=== PATIENT | male | born 1960 | race Caucasian/White ===

== ENCOUNTER → 2017-09-24 | Outpatient (CLI) | payer OTHER ==
[~2017-09-24] MED LIST: REGADENOSON 0.4 MG/5 ML SYRINGE IV ONE
--- NOTE | 2017-09-24 12:48 | NM ---
EXAMINATION TYPE: NM stress lexiscan cardiolite DATE OF EXAM: 09/24/2017 COMPARISON: NONE HISTORY: Hypertension, I10 TECHNIQUE: After the intravenous administration of 10.3 mCi Tc 99m Sestamibi - Cardiolite resting SP ECT images acquired 45 minutes post injection. The patient received 0.4mg Lexiscan, 26.8 mCi Tc 99m Sestamibi - Stress images obtained [address] injection FINDINGS: Review of stress and rest SPECT images demonstrates some gut activity along the inferior wall of the left ventricle, no areas of pharmacologically induced ischemia evident, gated analysis shows question able paradoxical inferior wall motion with an estimated left ventricular ejection fraction of 54 %. IMPRESSION: No scintigraphic evidence for reversible ischemia.
--- NOTE | 2017-09-26 09:56 | EST ---
EXERCISE STRESS DATE OF SERVICE: September 24, 2017. AGE: 57 SEX: Male HT: 71" WT: 140 PROTOCOL: Lexiscan STAGE: DURATION OF EXERCISE: HEART RATE REST: 65 BLOOD PRESSURE REST: 163/80 MAXIMUM HEART RATE ACHIEVED: 103 MAXIMUM BLOOD PRESSURE: 214/71 85% MPHR: 100% MPHR: METS: INDICATION: Chest pain. STRESS DATA: Pretesting physical examination showed a heart rate of 65, pressure is 163/80 mmHg. EKG showed sinus mechanism. 0.4 mg of Lexiscan was given over 15 seconds per protocol. The max heart rate was 103 beats per minute and maximum pressure was 214/71 mmHg. Clinically the patient did not have any symptoms of chest pain or discomfort and the EKG did not show any significant ST or T-wave abnormalities concerning for ischemia. CONCLUSION: 1. Nondiagnostic electrocardiogram stress testing in response to Lexiscan. 2. Please follow up on the Cardiolite portion on separate report. MMODL / IJN: [id number] /
== END | disposition home or self-care (01) ==
LOC: RADNMMAIN 08:14
PROVIDERS: ATTEND Family Medicine
DX: I10 Essential (primary) hypertension (principal)
CPT/HCPCS: 93017; 78452; A9500; J2785

== ENCOUNTER 2017-10-23 11:29 | Day surgery (SDC) | payer OTHER ==
[~2017-10-23 11:29] MED LIST changes: +LACTATED RINGERS 1,000 ML IV SCH; +LIDOCAINE 1% 20 ML VIAL (10MG/ML) FOR IV START INTRADERMA PRN; -REGADENOSON 0.4 MG/5 ML SYRINGE IV ONE
[2017-10-23 12:15] VITALS: TEMP 97.9
[2017-10-23] MEDS ORDERED: LACTATED RINGERS 1,000 ML IV ONE ×2 (12:26)
--- NOTE | 2017-10-23 14:26 | P.GSHP ---
History of Present Illness H&P Date: 10/23/17 Chief Complaint: GERD, diarrhea This a 57-year-old male referred from [facility]. Patient presents today for EGD colonoscopy. He's had issues with GERD and diarrhea. Past Medical History Past Medical History: COPD, Hypertension Additional Past Medical History / Comment(s): anemia, bowel obstruction, History of Any Multi-Drug Resistant Organisms: None Reported Additional Past Surgical History / Comment(s): colonscopy Past Anesthesia/Blood Transfusion Reactions: No Reported Reaction Smoking Status: Former smoker - Past Family History Mother Family Medical History: Cancer Medications and Allergies Home Medications Medication Instructions Recorded Confirmed Type Albuterol Nebulizer 1 applicate IH BID 10/17/17 10/23/17 History Ferrous Sulfate [Feosol] 325 mg PO Q48H 10/17/17 10/23/17 History Ipratropium Nebulizer 1 applicate IH BID 10/17/17 10/23/17 History Ipratropium/Albuterol Sulfate 1 puff INHALATION QID PRN 10/17/17 10/23/17 History [Combivent Respimat Inhaler] Metoprolol Tartrate [Lopressor] 50 mg PO BID 10/17/17 10/23/17 History Potassium 99 mg PO DAILY 10/17/17 10/23/17 History Tiotropium 18 Mcg/Puff [Spiriva] 1 cap INHALATION W/LUNCH 10/17/17 10/23/17 History Allergies Allergy/AdvReac Type Severity Reaction Status Date / Time No Known Allergies Allergy Unverified 10/23/17 12:09 Surgical - Exam Vital Signs Temp Pulse Resp BP Pulse Ox 97.9 F 70 16 163/84 97 10/23/17 12:14 10/23/17 12:14 10/23/17 12:14 10/23/17 12:14 10/23/17 12:14 - General well developed, well nourished, no distress - Eyes PERRL - ENT normal pinna - Neck no masses - Respiratory normal expansion - Cardiovascular Rhythm: regular - Abdomen Abdomen: soft, non tender Assessment and Plan Assessment: GERD, diarrhea. We'll perform EGD and colonoscopy.
[2017-10-23] MEDS ORDERED: PROPOFOL 10 MG/ML 20 ML VIAL IV ONE (14:28)
--- NOTE | 2017-10-23 14:44 | P.OP ---
Date of Procedure: 10/23/17 Preoperative Diagnosis: GERD Diarrhea Postoperative Diagnosis: Antral gastritis Small hiatal hernia Mild esophagitis Procedure(s) Performed: EGD Colonoscopy Anesthesia: MAC Surgeon: Shyam Schaffer Pathology: other (Antrum, esophagus) Condition: stable Disposition: PACU Description of Procedure: The patient's placed on the endoscopy table in the lateral position. He received IV sedation. The gastroscope placed oropharynx passed in the esophagus and stomach. Scope was then placed through the pylorus. The first and second portion of the duodenum appeared normal. Scope was then brought back the antrum this is mildly inflamed. A biopsies performed. Scope was then retroflexed and there was a small hiatal hernia. The GE junction was at 38 cm. The distal esophagus appeared mildly inflamed a biopsies performed. The proximal esophagus appeared normal. Scope was withdrawn for patient. Next digital rectal exam was performed there appeared to be no abnormalities. Flexible colonoscope was then placed patient anus and passed throughout the colon. The scope could not be passed beyond the transverse colon secondary to tortuous valve. The colon was very difficult to distend. This point scope was withdrawn. There is no significant abnormality seen. The patient was scheduled for a barium enema.
[2017-10-23 14:55] VITALS: RESP 18
[2017-10-23 15:37] VITALS: PULSE 60
[2017-10-23 16:01] VITALS: BP 159/90
== END 2017-10-23 15:50 | disposition home or self-care (01) ==
LOC: ORWHC2ENDO 11:29
PROVIDERS: ATTEND Surgery
DX: K29.50 Unspecified chronic gastritis without bleeding (principal); K44.9 Diaphragmatic hernia without obstruction or gangrene; K21.0 Gastro-esophageal reflux disease with esophagitis; Q43.8 Other specified congenital malformations of intestine; R19.7 Diarrhea, unspecified; J44.9 Chronic obstructive pulmonary disease, unspecified; I10 Essential (primary) hypertension; D64.9 Anemia, unspecified; Z79.899 Other long term (current) drug therapy; Z87.891 Personal history of nicotine dependence
CPT/HCPCS: 88305; 45378; 43239; J2704

== ENCOUNTER 2018-03-06 19:27 | Inpatient (IN) | payer OTHER ==
--- NOTE | 2018-03-06 20:06 | ED ---
Fall HPI - General Chief Complaint: Fall Stated Complaint: fall, lt hip pain Time Seen by Provider: 03/06/18 19:35 Source: patient Mode of arrival: wheelchair - History of Present Illness Initial Comments: This is a 57-year-old male the ER for evaluation. Patient resents today for evaluation Of fall. Patient had a trip and fall wall bowling tonight. Landing on left hip positive left hip fracture. No other injuries noted. Patient does admit to alcohol intoxication MD Complaint: fall -: minutes(s) Fall From: standing (Wall bowling) When Fall Occurred: 1 hour [employer] Fall Witnessed: no Place Fall Occurred: other (Pelvic place) Loss of Consciousness: none Prolonged Down Time?: no Symptoms Prior to Fall: none Location - Extremities: Left: Thigh Severity: severe Severity scale (1-10): 4 Quality: stabbing Context: tripped/slipped, alcohol use Associated Symptoms: denies - Related Data Home Medications Medication Instructions Recorded Confirmed Ferrous Sulfate [Feosol] 325 mg PO DAILY 10/17/17 03/06/18 Ipratropium/Albuterol Sulfate 1 puff INHALATION RT-QID PRN 10/17/17 03/06/18 [Combivent Respimat Inhaler] Metoprolol Tartrate [Lopressor] 50 mg PO BID 10/17/17 03/06/18 Potassium 99 mg PO DAILY 10/17/17 03/06/18 Tiotropium 18 Mcg/Puff [Spiriva] 1 cap INHALATION RT-DAILY 10/17/17 03/06/18 Albuterol Nebulized [Ventolin 2.5 mg INHALATION RT-TID 03/06/18 03/06/18 Nebulized] Ipratropium Nebulized [Atrovent 0.5 mg INHALATION RT-TID 03/06/18 03/06/18 Nebulized 0.2 MG/ML] Lisinopril [Zestril] 20 mg PO DAILY 03/06/18 03/06/18 Allergies Allergy/AdvReac Type Severity Reaction Status Date / Time prednisone AdvReac Hallucinati Verified 03/07/18 16:17 ons Review of Systems ROS Statement: Those systems with pertinent positive or pertinent negative responses have been documented in the HPI. ROS Other: All systems not noted in ROS Statement are negative. Past Medical History Past Medical History: COPD, Hypertension Additional Past Medical History / Comment(s): bowel obstruction History of Any Multi-Drug Resistant Organisms: None Reported Past Surgical History: No Surgical Hx Reported Past Psychological History: No Psychological Hx Reported Smoking Status: Former smoker Past Alcohol Use History: Occasional Past Drug Use History: None Reported - Past Family History Father Family Medical History: CVA/TIA Mother Family Medical History: Myocardial Infarction (VT) General Exam Limitations: physical limitation General appearance: alert, in no apparent distress Head exam: Present: atraumatic, normocephalic, normal inspection Eye exam: Present: normal appearance, PERRL, EOMI. Absent: scleral icterus, conjunctival injection, periorbital swelling ENT exam: Present: normal exam, mucous membranes moist Neck exam: Present: normal inspection. Absent: tenderness, meningismus, lymphadenopathy Respiratory exam: Present: normal lung sounds bilaterally. Absent: respiratory distress, wheezes, rales, rhonchi, stridor Cardiovascular Exam: Present: regular rate, normal rhythm, normal heart sounds. Absent: systolic murmur, diastolic murmur, rubs, gallop, clicks GI/Abdominal exam: Present: soft, normal bowel sounds. Absent: distended, tenderness, guarding, rebound, rigid Extremities exam: Present: normal inspection, full ROM, normal capillary refill , other (Severe left hip tenderness). Absent: tenderness, pedal edema, joint swelling, calf tenderness Back exam: Present: normal inspection Neurological exam: Present: alert, oriented X3, CN II-XII intact Psychiatric exam: Present: normal affect, normal mood Skin exam: Present: warm, dry, intact, normal color. Absent: rash Course Vital Signs 03/06/18 03/06/18 03/06/18 19:31 20:55 21:03 Temperature 97.9 F Pulse Rate 55 L 60 60 Respiratory 21 Rate Blood Pressure 92/56 O2 Sat by Pulse 95 Oximetry 03/06/18 21:53 Temperature Pulse Rate 71 Respiratory 20 Rate Blood Pressure 127/60 O2 Sat by Pulse 100 Oximetry Medical Decision Making - Medical Decision Making 57 male the ER for evaluation left hip pain positive left hip fracture. Patient will be admitted for orthopedic evaluation and treatment - Lab Data Result diagrams: 03/08/18 07:17 03/06/18 21:24 Lab Results 03/06/18 03/06/18 03/06/18 Range/Units 21:24 21:24 21:24 WBC 11.1 H (3.8-10.6) k/uL RBC 3.81 L (4.30-5.90) m/uL Hgb 11.8 L (13.0-17.5) gm/dL Hct 36.4 L (39.0-53.0) % MCV 95.4 (80.0-100.0) fL MCH 31.0 (25.0-35.0) pg MCHC 32.4 (31.0-37.0) g/dL RDW 13.8 (11.5-15.5) % Plt Count 403 (150-450) k/uL Neutrophils % 75 % Lymphocytes % 16 % Monocytes % 5 % Eosinophils % 2 % Basophils % 0 % Neutrophils # 8.3 H (1.3-7.7) k/uL Lymphocytes # 1.7 (1.0-4.8) k/uL Monocytes # 0.6 (0-1.0) k/uL Eosinophils # 0.2 (0-0.7) k/uL Basophils # 0.0 (0-0.2) k/uL PT (9.0-12.0) sec INR (<1.2) APTT (22.0-30.0) sec Sodium 126 L (137-145) mmol/L Potassium 4.5 (3.5-5.1) mmol/L Chloride 96 L (98-107) mmol/L Carbon Dioxide 18 L (22-30) mmol/L Anion Gap 12 mmol/L BUN 15 (9-20) mg/dL Creatinine 0.83 (0.66-1.25) mg/dL Est GFR (CKD-EPI)AfAm >90 (>60 ml/min/1.73 sqM) Est GFR (CKD-EPI)NonAf >90 (>60 ml/min/1.73 sqM) Glucose 87 (74-99) mg/dL Calcium 9.1 (8.4-10.2) mg/dL Phosphorus 3.1 (2.5-4.5) mg/dL Magnesium 2.0 (1.6-2.3) mg/dL Total Bilirubin 0.8 (0.2-1.3) mg/dL AST 28 (17-59) U/L ALT 30 (21-72) U/L Alkaline Phosphatase 68 (38-126) U/L Total Creatine Kinase 121 (55-170) U/L CK-MB (CK-2) 1.4 (0.0-2.4) ng/mL CK-MB (CK-2) Rel Index 1.2 Troponin I <0.012 (0.000-0.034) ng/mL Total Protein 6.8 (6.3-8.2) g/dL Albumin 4.3 (3.5-5.0) g/dL Serum Alcohol 143 mg/dL 03/06/18 Range/Units 21:24 WBC (3.8-10.6) k/uL RBC (4.30-5.90) m/uL Hgb (13.0-17.5) gm/dL Hct (39.0-53.0) % MCV (80.0-100.0) fL MCH (25.0-35.0) pg MCHC (31.0-37.0) g/dL RDW (11.5-15.5) % Plt Count (150-450) k/uL Neutrophils % % Lymphocytes % % Monocytes % % Eosinophils % % Basophils % % Neutrophils # (1.3-7.7) k/uL Lymphocytes # (1.0-4.8) k/uL Monocytes # (0-1.0) k/uL Eosinophils # (0-0.7) k/uL Basophils # (0-0.2) k/uL PT 9.5 (9.0-12.0) sec INR 0.9 (<1.2) APTT 22.2 (22.0-30.0) sec Sodium (137-145) mmol/L Potassium (3.5-5.1) mmol/L Chloride (98-107) mmol/L Carbon Dioxide (22-30) mmol/L Anion Gap mmol/L BUN (9-20) mg/dL Creatinine (0.66-1.25) mg/dL Est GFR (CKD-EPI)AfAm (>60 ml/min/1.73 sqM) Est GFR (CKD-EPI)NonAf (>60 ml/min/1.73 sqM) Glucose (74-99) mg/dL Calcium (8.4-10.2) mg/dL Phosphorus (2.5-4.5) mg/dL Magnesium (1.6-2.3) mg/dL Total Bilirubin (0.2-1.3) mg/dL AST (17-59) U/L ALT (21-72) U/L Alkaline Phosphatase (38-126) U/L Total Creatine Kinase (55-170) U/L CK-MB (CK-2) (0.0-2.4) ng/mL CK-MB (CK-2) Rel Index Troponin I (0.000-0.034) ng/mL Total Protein (6.3-8.2) g/dL Albumin (3.5-5.0) g/dL Serum Alcohol mg/dL - EKG Data -: EKG Interpreted by Me (EKG shows sinus rhythm rate of 74, VA 142, QRS 84, QTc 435) - Radiology Data Radiology results: report reviewed (X-ray chest CT brain C-spine negative, x- ray hip is positive for left hip fracture), image reviewed Disposition Clinical Impression: Fall, Closed left hip fracture Disposition: ADMITTED IP TO THIS [facility] Condition: Good Is patient prescribed a controlled substance at d/c from ED?: No
--- NOTE | 2018-03-06 20:25 | XR ---
EXAMINATION TYPE: XR Hip LT and AP Pelvis DATE OF EXAM: 03/06/2018 COMPARISON: NONE HISTORY: Hip pain after falling TECHNIQUE: A single AP view of the pelvis is obtained. Two views of the left hip are obtained. FINDINGS: There is an acute intertrochanteric fracture left femur. There is no dislocation. Pelvic ri ng is intact. Sacroiliac joints appear normal. IMPRESSION: Acute intertrochanteric fracture left femur.
--- NOTE | 2018-03-06 20:26 | XR ---
EXAMINATION TYPE: XR chest 1V DATE OF EXAM: 03/06/2018 COMPARISON: 12/04/2013 HISTORY: Chest pain TECHNIQUE: Single frontal view of the chest is obtained. FINDINGS: There is no heart failure nor confluent pneumonic infiltrate. Costophrenic angles are irina r. Bony thorax is intact. Pulmonary vascularity is normal. IMPRESSION: Normal chest. No change.
[2018-03-06] MEDS ORDERED: IPRATROPIUM-ALBUTEROL 3 ML NEB INHALATION STA (20:41)
[2018-03-06] MEDS ORDERED: SODIUM CHLORIDE 0.9% 500 ML 500 ML IV STA (21:15)
[2018-03-06] MEDS ORDERED: ONDANSETRON 4 MG/2 ML VIAL IVP STA (21:15)
[2018-03-06] MEDS ORDERED: SODIUM CHLORIDE 0.9% 1,000 ML IV STA ×2 (21:15)
[2018-03-06] MEDS ORDERED: MORPHINE SULFATE 4 MG/ML SYRINGE IV STA (21:15)
[2018-03-06 21:45] LABS: Basophils % (A) 0 %; Eosinophils # (A) 0.2 k/uL (0-0.7); Eosinophils % (A) 2 %; HCT 36.4 % (39.0-53.0); HGB 11.8 gm/dL (13.0-17.5); Lymphocytes # (A) 1.7 k/uL (1.0-4.8); Lymphocytes % (A) 16 %; MCHC 32.4 g/dL (31.0-37.0); MCV 95.4 fL (80.0-100.0); Mean Platelet Volume 5.6; Monocytes # (A) 0.6 k/uL (0-1.0); Monocytes % (A) 5 %; Neutrophils # (A) 8.3 k/uL (1.3-7.7); Neutrophils % (A) 75 %; Platelet Count 403 k/uL (150-450); RBC 3.81 m/uL (4.30-5.90); RDW 13.8 % (11.5-15.5); WBC 11.1 k/uL (3.8-10.6)
[2018-03-06 21:55] LABS: ALT 30 U/L (21-72); AST 28 U/L (17-59); Albumin 4.3 g/dL (3.5-5.0); Alkaline Phosphatase 68 U/L (38-126); Anion Gap 12 mmol/L; Blood Urea Nitrogen 15 mg/dL (9-20); Calcium 9.1 mg/dL (8.4-10.2); Carbon Dioxide 18 mmol/L (22-30); Chloride 96 mmol/L (98-107); Glucose 87 mg/dL (74-99); Phosphorus 3.1 mg/dL (2.5-4.5); Potassium 4.5 mmol/L (3.5-5.1); Sodium 126 mmol/L (137-145); Total Bilirubin 0.8 mg/dL (0.2-1.3); Total Protein 6.8 g/dL (6.3-8.2)
[2018-03-06 22:00] LABS: INR 0.9 (<1.2); Partial Thromboplastin Time 22.2 sec (22.0-30.0); Prothrombin Time 9.5 sec (9.0-12.0)
[2018-03-06 22:09] LABS: Alcohol 143 mg/dL
[2018-03-06 22:17] LABS: Creatine Kinase 121 U/L (55-170)
[2018-03-06] MEDS ORDERED: MORPHINE SULFATE 4 MG/ML SYRINGE IVP PRN (22:23)
[2018-03-06 22:30] LABS: Creatine Kinase MB 1.4 ng/mL (0.0-2.4); Troponin I <0.012 ng/mL (0.000-0.034)
[2018-03-06] MEDS ORDERED: ONDANSETRON 4 MG/2 ML VIAL IVP PRN (22:37)
--- NOTE | 2018-03-06 23:00 | CT ---
EXAMINATION TYPE: CT hip LT wo con DATE OF EXAM: 03/06/2018 COMPARISON: None HISTORY: Fell on LT hip CT DLP: 367.8 mGycm Automated exposure control for dose reduction was used. FINDINGS: Multiple axial sections were obtained from the mid sacroiliac joint to the proximal shaft of the femu r without contrast. There is an acute impacted subcapital fracture of the left femur. There is displacement of the fragme nts 1.4 cm. There is no dislocation. The acetabulum is intact. IMPRESSION: ACUTE SUBCAPITAL FRACTURE LEFT FEMUR WITH IMPACTION.
[2018-03-06] MEDS ORDERED: NON-FORMULARY DRUG (Ipratropium/Albuterol Sulfate [Combivent Respimat Inhaler] 1 PUFF) INHALATION PRN (23:52)
[2018-03-07 03:19] LABS: Appearance,Urine Clear (Clear); Bilirubin,Urine Negative (Negative); Blood,Urine Negative (Negative); Color,Urine Light Yellow; Glucose,Urine (UA) Negative (Negative); Ketones,Urine Trace (Negative); Leukocyte Esterase,Urine Negative (Negative); Nitrite,Urine Negative (Negative); PH, Urine 5.5 (5.0-8.0); Protein,Urine Negative (Negative); Specific Gravity,Urine 1.009 (1.001-1.035); Urobilinogen,Urine <2.0 mg/dL (<2.0)
[2018-03-07] MEDS: HYDROmorphone 0.5 MG/0.5 ML SYRINGE IVP PRN ×5 (03:33→13:58)
[2018-03-07] MEDS: IPRATROPIUM-ALBUTEROL 3 ML NEB INHALATION SCH ×3 (06:02→19:31)
[2018-03-07] MEDS: LISINOPRIL 20 MG TAB PO SCH (07:07)
[2018-03-07] MEDS: METOPROLOL TARTRATE 25 MG TAB PO SCH ×2 (07:07→20:42)
[2018-03-07] MEDS: FERROUS SULFATE 325 MG TAB PO SCH (07:08)
[2018-03-07] MEDS: ENOXAPARIN 40 MG/0.4 ML SYRINGE SQ SCH (07:37)
--- NOTE | 2018-03-07 07:42 | P.HPOR ---
History of Present Illness H&P Date: 03/07/18 Chief Complaint: Left hip pain The patient's a 57-year-old community ambulator presents after falling while bowling yesterday. He injured his left hip. He was unable to bear weight after the injury. He denied loss of consciousness. Normally ambulates without any assistive devices. Review of Systems Musculoskeletal: left: hip pain Past Medical History Past Medical History: COPD, Hypertension Additional Past Medical History / Comment(s): bowel obstruction History of Any Multi-Drug Resistant Organisms: None Reported Past Surgical History: No Surgical Hx Reported Past Anesthesia/Blood Transfusion Reactions: No Reported Reaction Past Psychological History: No Psychological Hx Reported Smoking Status: Former smoker Past Alcohol Use History: Daily (6 beers Per day), Occasional Past Drug Use History: None Reported - Past Family History Father Family Medical History: CVA/TIA Mother Family Medical History: Myocardial Infarction (ID) Medications and Allergies Home Medications Medication Instructions Recorded Confirmed Type Ferrous Sulfate [Feosol] 325 mg PO DAILY 10/17/17 03/06/18 History Ipratropium/Albuterol Sulfate 1 puff INHALATION RT-QID PRN 10/17/17 03/06/18 History [Combivent Respimat Inhaler] Metoprolol Tartrate [Lopressor] 50 mg PO BID 10/17/17 03/06/18 History Potassium 99 mg PO DAILY 10/17/17 03/06/18 History Tiotropium 18 Mcg/Puff [Spiriva] 1 cap INHALATION RT-DAILY 10/17/17 03/06/18 History Albuterol Nebulized [Ventolin 2.5 mg INHALATION RT-TID 03/06/18 03/06/18 History Nebulized] Ipratropium Nebulized [Atrovent 0.5 mg INHALATION RT-TID 03/06/18 03/06/18 History Nebulized 0.2 MG/ML] Lisinopril [Zestril] 20 mg PO DAILY 03/06/18 03/06/18 History Allergies Allergy/AdvReac Type Severity Reaction Status Date / Time prednisone AdvReac Hallucinati Verified 03/06/18 20:08 ons Physical Examination - Fracture left hip Location of fracture: Left hip, shortening and external rotation left lower extremity Appearance: swelling (Anterior) Distal extremity neurovascularly intact: Yes Distal joint involvement: No (Nontender left ankle/knee) Results - Labs Labs: Abnormal Lab Results - Last 24 Hours (Table) 03/06/18 03/06/18 03/07/18 Range/Units 21:24 21:24 03:10 WBC 11.1 H (3.8-10.6) k/uL RBC 3.81 L (4.30-5.90) m/uL Hgb 11.8 L (13.0-17.5) gm/dL Hct 36.4 L (39.0-53.0) % Neutrophils # 8.3 H (1.3-7.7) k/uL Sodium 126 L (137-145) mmol/L Chloride 96 L (98-107) mmol/L Carbon Dioxide 18 L (22-30) mmol/L Urine Ketones Trace H (Negative) H & H 03/06/18 Range/Units 21:24 Hgb 11.8 L (13.0-17.5) gm/dL Hct 36.4 L (39.0-53.0) % Coagulation 03/06/18 Range/Units 21:24 INR 0.9 (<1.2) Result Diagrams: 03/06/18 21:24 03/06/18 21:24 - Diagnostic results Hip x-ray: image reviewed Hip CT: image reviewed (Displaced left subcapital femoral neck fracture) Assessment and Plan Assessment: Displaced left subcapital femoral neck fracture COPD Heavy alcohol use (1) Closed left hip fracture Current Visit: Yes Status: Acute Priority: Medium Code(s): S72.002A - FRACTURE OF UNSP PART OF NECK OF LEFT FEMUR, INIT SNOMED Code(s): 845960948 Plan: I talked to the patient and his regarding his condition along with treatment options. We will plan to proceed with left total hip arthroplasty tomorrow morning. We will await preoperative medical evaluation/clearance. I anticipate starting DVT prophylaxis postoperatively.
[2018-03-07] MEDS ORDERED: ALBUTEROL NEBULIZED 2.5 MG/3 ML INHALATION SCH (08:00)
[2018-03-07] MEDS ORDERED: NON-FORMULARY DRUG (Tiotropium 18 Mcg/Puff 1 CAP) INHALATION SCH (08:00)
[2018-03-07] MEDS ORDERED: IPRATROPIUM 0.5 MG/2.5 ML NEBU INHALATION SCH (08:00)
[2018-03-07] MEDS ORDERED: NON-FORMULARY DRUG (Potassium [Potassium] 99 MG) PO SCH (09:00)
[2018-03-07] MEDS ORDERED: IV FLUID CONTINUATION 1,000 ML IV ONE (16:10)
[2018-03-07] MEDS ORDERED: fentaNYL (PF) 50 MCG/ML 2 ML AMP IVP ONE (16:40)
[2018-03-07] MEDS ORDERED: PROPOFOL 10 MG/ML 20 ML VIAL IV ONE (17:31)
[2018-03-07] MEDS ORDERED: MIDAZOLAM 2 MG/2 ML VIAL ONE (17:31)
[2018-03-07] MEDS ORDERED: KETAMINE 10 MG/ML 20 ML VIAL ONE (17:31)
[2018-03-07] MEDS ORDERED: PHENYLEPHRINE-0.9% NACL SYG 1 MG/10 ML SYRINGE ONE (17:31)
[2018-03-07] MEDS ORDERED: fentaNYL (PF) 50 MCG/ML 2 ML AMP ONE (17:31)
[2018-03-07] MEDS ORDERED: LACTATED RINGERS 1,000 ML IV ONE (17:43)
[2018-03-07] MEDS ORDERED: SODIUM CHLORIDE 0.9% 1,000 ML IV ONE ×2 (17:43→18:42)
[2018-03-07] MEDS ORDERED: ceFAZolin 3,000 MG in SODIUM CHLORIDE 0.9% IRRIGATIO 3,000 ML IRRIGATION ONE (18:07)
[2018-03-07] MEDS ORDERED: NALOXONE 0.4 MG/ML 1 ML VIAL IV PRN (19:12)
[2018-03-07] MEDS ORDERED: HYDROmorphone 2 MG/ML 1 ML SYRINGE IVP PRN (19:12)
--- NOTE | 2018-03-07 19:33 | P.OP ---
Date of Procedure: 03/07/18 Preoperative Diagnosis: Displaced left subcapital femoral neck fracture Postoperative Diagnosis: Same Procedure(s) Performed: Left total hip arthroplastylateral approach Implants: Depuy Corail size 15 standard collared femoral stem, 36 mm +5 cobalt chrome femoral head, 52 mm [place] acetabular shell with neutral polyethylene liner. Anesthesia: spinal Surgeon: Juan Daniel Paredes Estimated Blood Loss (ml): 75 Pathology: other (Femoral head) Condition: stable Disposition: PACU Indications for Procedure: The patient's a 57-year-old male who presents after falling yesterday injuring his left hip. Upon evaluation he was noted have a displaced left subcapital femoral neck fracture. A discussion of the risks and benefits of operative intervention was made with patient. Operative options to include open reduction and fixation versus total hip arthroplasty versus hemiarthroplasty were discussed. He opted to proceed with total hip arthroplasty. Specific risks of this procedure to include infection, neurovascular injury, development of blood clots, possible component loosening, possible dislocation, possible ligament discrepancy and need for subsequent procedures was discussed. Informed consent was obtained. Operative Findings: As below Description of Procedure: The patient was brought to the operating room, and after induction of spinal anesthesia was placed in a lateral decubitus position. The bony prominences were appropriately padded. The pelvis was stable perpendicular to the floor with a pegboard. The left lower extremity was prepped and draped in normal fashion. A 12 cm incision was then made centered over the greater trochanter extending superiorly to level the ASIS and distally in line with the femoral shaft. The skin and subcutaneous tissues were divided sharply. Electrocautery was used for hemostasis. The fascia clare and gluteus jhoan fascia was split in line with the skin incision. The muscle fibers were bluntly dissected proximally. A self-retaining retractor was placed. The anterior and posterior margins of the gluteus medius muscles identified and the anterior two thirds was detached from the greater trochanter with electrocautery. The gluteus minimus tendon was identified and detached in a similar fashion. A wide capsulotomy was performed. The femoral neck fracture was identified in the lower neck cut was made approximately 1 1/2 cm above the level of the lesser trochanter with a sagittal saw at a 45 the shaft. The head was then extracted with a corkscrew. Attention was then paid towards preparing the acetabular. Anterior and posterior retractors were placed. The remaining capsular labral tissues debrided sharply clearly defining the acetabular margins. Began reaming with a 49 mm reamer taking care to initially medialize, then reaming at 45 of abduction and 20 of anteversion. Sequential reaming is performed up to 53 mm. This was down to bleeding bony surface. A trial 53 mm acetabular shell was inserted at 45 of abduction and 20 of anteversion. This was fully seated. There was good rim fit and stability. A neutral polyethylene liner was then impacted. Care taken to avoid any soft tissue interposition. Attention was then paid towards preparing the proximal femur. A box chisel was used to open the metaphyseal region. A canal finder was used to find the femoral canal. Sequential broaching was performed up to a size 15. This is placed in 15 of anteversion with the leg perpendicular floor judging off the trans-epicondylar axis. There is good rotational stability. A calcar mill was used to fashion the medial calcar. A trial standard neck along with a 36 mm mm + 5 trial head was placed. The hip was gently reduced. It was taken through range of motion. I felt to be stable in flexion and extension with internal and external rotation. I felt there was adequate spiritism of soft tissue tension. The hip was gently dislocated. The trial components removed. Pulsatile lavage was utilized. The final size 15 standard collared femoral stem was inserted again with the leg perpendicular to the floor in 15 of anteversion. Again there was good rotational stability. A 36 mm + 5 cobalt chrome femoral head was gently impacted. The hip was gently reduced. Again it was taken through motion and felt to be stable in flexion and extension with internal and external rotation. Pulsatile lavage was again utilized. With the leg in abduction the gluteus minimus and medius tendons reattached to the greater trochanter with #2 Ethibond suture. There was minimal drainage therefore a deep drain was not placed. The fascia clare and gluteus jhoan fascia was closed with #2 Ethibond suture. The subcutaneous tissues were reapproximated interrupted 2-0 Vicryl sutures. The skin was reapproximated with 3-0 subcuticular strata fix suture. Skin tape and adhesive was applied. A sterile dressing was applied. The patient was awoken from sedation and transferred to recovery room in good condition. Blood loss was estimated 75 mL. No complications were incurred. Sponge and needle counts were correct in the case.
--- NOTE | 2018-03-07 19:33 | XR ---
EXAMINATION TYPE: XR Hip Limited LT DATE OF EXAM: 03/07/2018 COMPARISON: Yesterday HISTORY: Postop TECHNIQUE: Single view FINDINGS: There is a new left hip prosthesis. Components are in anatomic position. IMPRESSION: No complicating process seen.
[2018-03-07] MEDS ORDERED: THIAMINE 100 MG/ML 2 ML VIAL IM STA (20:48)
[2018-03-07] MEDS ORDERED: LORazepam 2 MG/ML INJ IV PRN ×3 (20:48)
--- NOTE | 2018-03-07 21:57 | CONS ---
CONSULTATION CHIEF COMPLAINT: This is a 57-year-old white male, status post left hip fracture, for medical management consult. He has history of COPD, alcoholism, hypertension. HOME MEDICATIONS: Home medications were reordered for the patient, including Lopressor and Zestril for hypertension, Spiriva, albuterol, Atrovent updrafts. ALLERGIES: PREDNISONE. REVIEW OF SYSTEMS: Fourteen-point review of systems negative except for mentioned in HPI. PAST MEDICAL HISTORY: 1. COPD. 2. Hypertension. 3. Bowel obstruction. PHYSICAL EXAMINATION: Blood pressure 92/56, pulse 55 to 60, temperature 97.9, respiratory rate 18 to 21, oxygen 95% on room air. CARDIOVASCULAR: S1, S2. LUNGS: Clear. GI: Soft. HEMATOLOGY: Negative Homans. PSYCH: Fair mood and affect. OPHTHALMOLOGIC: Pupils equal, round and reactive to light and accommodation. ASSESSMENT: 1. Closed left hip fracture. 2. Hypertension. 3. Chronic obstructive pulmonary disease. 4. Nicotine addiction. Continue current treatment. Follow up in the next 24 to 48 hours. Cleared for surgery. MMODL / IJN: [id number] /
[2018-03-07] MEDS: HYDROcodone/APAP 7.5-325MG 1 EACH TAB PO PRN (23:32)
[2018-03-07] MEDS: ceFAZolin IN SWFI 2 GM/20 ML SYRINGE IVP SCH (23:33)
[2018-03-08] MEDS: HYDROmorphone 0.5 MG/0.5 ML SYRINGE IVP PRN ×2 (01:02→13:54)
[2018-03-08] MEDS: HYDROcodone/APAP 7.5-325MG 1 EACH TAB PO PRN ×4 (04:51→21:22)
[2018-03-08] MEDS: IPRATROPIUM-ALBUTEROL 3 ML NEB INHALATION SCH ×3 (08:04→19:08)
[2018-03-08] MEDS: LISINOPRIL 20 MG TAB PO SCH (08:18)
[2018-03-08] MEDS: FERROUS SULFATE 325 MG TAB PO SCH (08:18)
[2018-03-08] MEDS: METOPROLOL TARTRATE 25 MG TAB PO SCH ×2 (08:18→21:22)
[2018-03-08] MEDS: ENOXAPARIN 40 MG/0.4 ML SYRINGE SQ SCH (08:18)
[2018-03-08 08:40] LABS: Basophils % (A) 0 %; Eosinophils # (A) 0.1 k/uL (0-0.7); Eosinophils % (A) 1 %; HCT 29.6 % (39.0-53.0); Lymphocytes % (A) 10 %; MCH 32.3 pg (25.0-35.0); MCHC 33.1 g/dL (31.0-37.0); MCV 97.7 fL (80.0-100.0); Mean Platelet Volume 6.3; Monocytes # (A) 0.5 k/uL (0-1.0); Monocytes % (A) 6 %; Neutrophils % (A) 83 %; Platelet Count 265 k/uL (150-450); RBC 3.03 m/uL (4.30-5.90); RDW 13.6 % (11.5-15.5); WBC 9.7 k/uL (3.8-10.6)
[2018-03-08 09:01] LABS: HGB 9.8 gm/dL (13.0-17.5)
[2018-03-08] MEDS: ceFAZolin IN SWFI 2 GM/20 ML SYRINGE IVP SCH (09:56)
--- NOTE | 2018-03-08 10:01 | P.PN ---
Subjective Progress Note Date: 03/08/18 Principal diagnosis: Status post left total hip arthroplasty Patient evaluated at bedside, he has family present. Resting comfortably. Pain control. Denies chest pain or shortness of breath. Objective - Vital Signs Vital signs: Vital Signs Temp 98.0 F 03/08/18 08:17 Pulse 76 03/08/18 08:17 Resp 16 03/08/18 08:17 BP 124/61 03/08/18 08:17 Pulse Ox 95 03/08/18 08:17 Intake & Output 03/07/18 03/08/18 03/08/18 18:59 06:59 18:59 Intake Total 1401 430 Output Total 75 1800 Balance 1326 -1370 Intake: IV 1401 150 Intake, IV Titration 280 Amount Sodium Chloride 0.9% 1, 280 000 ml @ 100 mls/hr IV . Q10H STA Rx#:[id number] Output: Urine 1650 Stool 150 Estimated Blood Loss 75 Other: Voiding Method Urinal Urinal # Voids 1 2 - Exam Left lower extremity: Incision is clean, dry, and intact. The exofin fusion tape is in good condition. There is minimal soft tissue swelling and ecchymosis surrounding the medial and lateral aspects of the incision. Calf is soft, no tenderness with palpation. Plantar flexion, dorsiflexion, EHL, FHL are intact. Sensory exam to light touch throughout the extremity is intact, dorsal pedis pulses 2+. - Labs CBC & Chem 7: 03/08/18 07:17 03/06/18 21:24 Labs: Abnormal Lab Results - Last 24 Hours (Table) 03/08/18 Range/Units 07:17 RBC 3.03 L (4.30-5.90) m/uL Hgb 9.8 L D (13.0-17.5) gm/dL Hct 29.6 L (39.0-53.0) % Neutrophils # 8.0 H (1.3-7.7) k/uL Assessment and Plan Plan: Assessment: Postoperative day #1 status post left total hip arthroplasty Plan: Pain control, continue current medication GI and DVT prophylaxis, continue current medication Wound care discussed Encourage incentive spirometer Medical recommendations Discharge planning: Hopeful discharge to home tomorrow Time with Patient: Less than 30
[2018-03-08] MEDS: THIAMINE 100 MG TAB PO SCH ×2 (13:44→18:28)
[2018-03-08] MEDS: hydrOXYzine PAMOATE 25 MG CAP PO PRN ×2 (15:50→21:22)
[2018-03-09] MEDS: HYDROcodone/APAP 7.5-325MG 1 EACH TAB PO PRN ×4 (02:29→21:42)
[2018-03-09] MEDS: hydrOXYzine PAMOATE 25 MG CAP PO PRN ×4 (02:30→21:42)
[2018-03-09] MEDS: IPRATROPIUM-ALBUTEROL 3 ML NEB INHALATION SCH ×3 (07:18→18:48)
[2018-03-09] MEDS: ENOXAPARIN 40 MG/0.4 ML SYRINGE SQ SCH (08:22)
[2018-03-09] MEDS: LISINOPRIL 20 MG TAB PO SCH (08:22)
[2018-03-09] MEDS: METOPROLOL TARTRATE 25 MG TAB PO SCH ×2 (08:22→21:43)
[2018-03-09] MEDS: FERROUS SULFATE 325 MG TAB PO SCH (08:22)
--- NOTE | 2018-03-09 10:56 | P.PN ---
Subjective Progress Note Date: 03/09/18 Principal diagnosis: Status post left total hip arthroplasty Patient evaluated at bedside, he has family present. Resting comfortably. Patient hasn't ambulated stairs at this time. Pain control. Denies chest pain or shortness of breath. Objective - Vital Signs Vital signs: Vital Signs Temp 98.2 F 03/09/18 08:17 Pulse 97 03/09/18 08:17 Resp 16 03/09/18 08:17 BP 116/61 03/09/18 08:17 Pulse Ox 99 03/09/18 08:17 Intake & Output 03/08/18 03/09/18 03/09/18 18:59 06:59 18:59 Intake Total 1330 Balance 1330 Intake: Oral 1330 Other: Voiding Method Urinal Urinal Toilet Urinal # Voids 2 3 # Bowel Movements 1 - Exam Left lower extremity: Incision is clean, dry, and intact. The exofin fusion tape is in good condition. There is minimal soft tissue swelling and ecchymosis surrounding the medial and lateral aspects of the incision. Calf is soft, no tenderness with palpation. Plantar flexion, dorsiflexion, EHL, FHL are intact. Sensory exam to light touch throughout the extremity is intact, dorsal pedis pulses 2+. - Labs CBC & Chem 7: 03/08/18 07:17 03/06/18 21:24 Assessment and Plan Plan: Assessment: Postoperative day #2 status post left total hip arthroplasty Plan: Pain control, continue current medication GI and DVT prophylaxis, continue current medication Wound care discussed Encourage incentive spirometer Medical recommendations Discharge planning: Hopeful discharge to home tomorrow Time with Patient: Less than 30
[2018-03-09] MEDS: THIAMINE 100 MG TAB PO SCH ×2 (11:39→17:00)
[2018-03-09] MEDS: DOCUSATE 100 MG CAP PO SCH (11:39)
[2018-03-09] MEDS: MAGNESIUM HYDROXIDE 2,400 MG/10 ML CUP PO PRN (17:00)
--- NOTE | 2018-03-09 18:43 | PN ---
PROGRESS NOTE DATE OF SERVICE: 03/09/2018 He does not have any chest pain or shortness of breath. He has pain in his left hip where he has had recent surgery because of a left hip fracture. On physical examination, blood pressure is 122/63, respiratory rate of 16, pulse rate of 81, temperature 98.2, O2 saturation on room air is 99%. HEENT is unremarkable. Chest is clear. Cardiovascular system reveals an S1, S2. Abdomen is soft. There is no pedal edema. There is surgical dressing over the left hip. IMPRESSION: 1. Left hip fracture, status post open reduction, internal fixation. 2. Chronic obstructive pulmonary disease. 3. Hypertension. Keep him on GI and DVT prophylaxis, increase his activity level per Orthopedics. His prognosis is fair. He was counseled regarding his condition. MMODL / IJN: [id number] /
[2018-03-10 07:11] VITALS: BP 152/73; RESP 14; TEMP 98.9
[2018-03-10] MEDS: HYDROcodone/APAP 7.5-325MG 1 EACH TAB PO PRN ×2 (07:11→12:14)
[2018-03-10] MEDS: METOPROLOL TARTRATE 25 MG TAB PO SCH (08:32)
[2018-03-10] MEDS: LISINOPRIL 20 MG TAB PO SCH (08:32)
[2018-03-10] MEDS: DOCUSATE 100 MG CAP PO SCH (08:32)
[2018-03-10] MEDS: ENOXAPARIN 40 MG/0.4 ML SYRINGE SQ SCH (08:33)
[2018-03-10] MEDS: FERROUS SULFATE 325 MG TAB PO SCH (08:33)
[2018-03-10] MEDS: MAGNESIUM HYDROXIDE 2,400 MG/10 ML CUP PO PRN (08:37)
[2018-03-10 08:39] LABS: Basophils % (A) 0 %; Eosinophils # (A) 0.1 k/uL (0-0.7); Eosinophils % (A) 2 %; HCT 26.5 % (39.0-53.0); HGB 8.7 gm/dL (13.0-17.5); Lymphocytes # (A) 0.6 k/uL (1.0-4.8); Lymphocytes % (A) 8 %; MCH 32.2 pg (25.0-35.0); MCHC 32.8 g/dL (31.0-37.0); Mean Platelet Volume 6.4; Monocytes # (A) 0.4 k/uL (0-1.0); Monocytes % (A) 6 %; Neutrophils # (A) 6.2 k/uL (1.3-7.7); Neutrophils % (A) 82 %; Platelet Count 282 k/uL (150-450); RDW 13.6 % (11.5-15.5); WBC 7.5 k/uL (3.8-10.6)
[2018-03-10] MEDS: IPRATROPIUM-ALBUTEROL 3 ML NEB INHALATION SCH (08:54)
[2018-03-10 08:57] VITALS: PULSE 95
--- NOTE | 2018-03-10 10:26 | P.PN ---
Subjective Progress Note Date: 03/10/18 Principal diagnosis: Status post left total hip arthroplasty Patient evaluated at bedside, he has family present. Resting comfortably. Patient hasn't ambulated stairs at this time. Pain control. Denies chest pain or shortness of breath. Objective - Vital Signs Vital signs: Vital Signs Temp 98.9 F 03/10/18 07:09 Pulse 95 03/10/18 09:05 Resp 14 03/10/18 07:09 BP 152/73 03/10/18 07:09 Pulse Ox 95 03/10/18 08:54 Intake & Output 03/09/18 03/10/18 03/10/18 18:59 06:59 18:59 Intake Total 2700 Output Total 310 Balance 2390 Weight 63.503 kg Intake: Oral 2700 Output: Urine 310 Other: Voiding Method Toilet Toilet Urinal Urinal # Voids 2 3 - Exam Left lower extremity: Incision is clean, dry, and intact. The exofin fusion tape is in good condition. There is minimal soft tissue swelling and ecchymosis surrounding the medial and lateral aspects of the incision. Calf is soft, no tenderness with palpation. Plantar flexion, dorsiflexion, EHL, FHL are intact. Sensory exam to light touch throughout the extremity is intact, dorsal pedis pulses 2+. - Labs CBC & Chem 7: 03/10/18 08:01 03/06/18 21:24 Labs: Abnormal Lab Results - Last 24 Hours (Table) 03/10/18 Range/Units 08:01 RBC 2.70 L (4.30-5.90) m/uL Hgb 8.7 L (13.0-17.5) gm/dL Hct 26.5 L (39.0-53.0) % Lymphocytes # 0.6 L (1.0-4.8) k/uL Assessment and Plan Plan: Assessment: Postoperative day #3 status post left total hip arthroplasty Plan: Pain control, discharged home on oral medication GI and DVT prophylaxis, aspirin 325 mg twice a day Wound care discussed Encourage incentive spirometer Medical recommendations Discharge planning: Discharged home today Time with Patient: Less than 30
--- NOTE | 2018-03-10 10:29 | P.DS ---
Providers Date of admission: 03/06/18 21:34 Expected date of discharge: 03/10/18 Attending physician: Juan Daniel Paredes Consults: 03/06/18 21:32 Consult Physician Routine Consulting Provider: Sj Kowalski Reason/Comments: medMgmnt Do you want consulting provider notified?: Yes Primary care physician: Sj Kowalski [facility] Course: Date of admission: 03/06/2018 Date of discharge: 03/10/2018 Admission diagnosis: Left subcapital femoral fracture Discharge diagnosis: Status post left total hip arthroplasty lateral approach Attending physician: Dr. Paredes Surgical procedures: Left total hip arthroplasty lateral approach Brief history: Patient is a 57-year-old male who presented to [facility] on 03/06/2018 after sustaining a fall while bowling. Upon arrival, it was determined he had a left femoral neck fracture. He was admitted under our orthopedic care with plan for surgical intervention. Hospital course: Details of patient's surgery can be found in operative report. Patient tolerated the procedure well and was subsequently transported to orthopedic floor. Patient's orthopeidc and medical care was provided daily. Patient had daily laboratory tests performed for evaluation of overall blood counts. Patient had daily physical therapy to include strengthening range of motion as well as education with walker ambulation. Patient was treated with Xarelto for their postoperative DVT prophylaxis during their inpatient stay. Patient was noted to have a relatively uneventful postoperative course. Patient reported satisfactory pain control with oral pain medications by postoperative day 0. Patient showed satisfactory progress with physical therapy. Patient moved steadily through the program and had no difficulty meeting the goals by postoperative day 3. Given patient's otherwise satisfactory course and having met physical therapy goals, plan is to discharge patient home on postoperative day 3. Discharge condition/disposition: Patient will be discharged home in stable condition. Discharge medications: Instructions are given on resumption of patient's normal daily medications per primary care recommendation, in addition patient will be prescribed [place] 7.5 mg/325 mg, Colace 100 mg, aspirin 325 mg. Discharge instructions: 1. Wound care and infection precautions, keep incision dry and covered while showering, no lotions, creams, moisturizers. No soaking, tubs, pools, hottubs. Do not scrub over the incision. 2. Weight-bear as tolerated with walker / cane until follow-up. 3. Ice and elevate when necessary. Do not exceed 20 minutes per hour with ice pack. 4. Utilize compression sleeve until seen at first follow up appointment. 5. Visiting nursing care. 6. Home physical therapy. 7. Pain meds and anticoagulants per prescription. 8. Pain medication has potential to cause constipation. Increase oral fluid and fiber intake. Contact primary care provider if you have not had a bowel movement within 48 hours after discharge 9. No anti-inflammatory medication until discussed at first post operative visit, this including Motrin, Aleve, Mobic, Diclofenac. 10. Follow up in office at 2 weeks postop with Cristino Fontanez PA-C 11. Follow up with your primary care doctor 7-10 days after discharge. 12. Contact [facility] with any questions, . Procedures: Left total hip arthroplasty lateral approach Patient Condition at Discharge: Good Plan - Discharge Summary Discharge Rx Participant: No New Discharge Prescriptions: New Aspirin 325 mg PO BID #60 tab Docusate [Colace] 100 mg PO DAILY #30 capsule HYDROcodone/APAP 7.5-325MG [[place] 7.5] 1 - 2 each PO Q6HR PRN #56 tab PRN Reason: Pain No Action Ferrous Sulfate [Feosol] 325 mg PO DAILY Tiotropium 18 Mcg/Puff [Spiriva] 1 cap INHALATION RT-DAILY Ipratropium/Albuterol Sulfate [Combivent Respimat Inhaler] 1 puff INHALATION RT-QID PRN PRN Reason: Shortness Of Breath Potassium 99 mg PO DAILY Metoprolol Tartrate [Lopressor] 50 mg PO BID Ipratropium Nebulized [Atrovent Nebulized 0.2 MG/ML] 0.5 mg INHALATION RT-TID Albuterol Nebulized [Ventolin Nebulized] 2.5 mg INHALATION RT-TID Lisinopril [Zestril] 20 mg PO DAILY Discharge Medication List Ferrous Sulfate [Feosol] 325 mg PO DAILY 10/17/17 [History] Ipratropium/Albuterol Sulfate [Combivent Respimat Inhaler] 1 puff INHALATION RT- QID PRN 10/17/17 [History] Metoprolol Tartrate [Lopressor] 50 mg PO BID 10/17/17 [History] Potassium 99 mg PO DAILY 10/17/17 [History] Tiotropium 18 Mcg/Puff [Spiriva] 1 cap INHALATION RT-DAILY 10/17/17 [History] Albuterol Nebulized [Ventolin Nebulized] 2.5 mg INHALATION RT-TID 03/06/18 [ History] Ipratropium Nebulized [Atrovent Nebulized 0.2 MG/ML] 0.5 mg INHALATION RT-TID [History] Lisinopril [Zestril] 20 mg PO DAILY 03/06/18 [History] Aspirin 325 mg PO BID #60 tab 03/10/18 [Rx] Docusate [Colace] 100 mg PO DAILY #30 capsule 03/10/18 [Rx] HYDROcodone/APAP 7.5-325MG [[place] 7.5] 1 - 2 each PO Q6HR PRN #56 tab 03/10/18 [ Rx] Follow up Appointment(s)/Referral(s): Sj Kowalski MD [Primary Care Provider] - 1-2 days Baudilio Fontanez PAC [PHYSICIAN PERSONNEL OFFICER] - 2 Weeks Activity/Diet/Wound Care/Special Instructions: Orthopedic Discharge Instructions: 1. Wound care and infection precautions, keep incision dry and covered while showering, no lotions, creams, moisturizers. No soaking, pools, hot tubs. Do not scrub over incision. 2. Weight-bear as tolerated with walker / cane until follow-up. 3. Ice and elevate when necessary. Do not exceed 20 minutes per hour with ice pack. 4. Utilize compression sleeve until seen at first follow up appointment. 5. Pain meds and anticoagulants per prescription. 6. Pain medication has potential to cause constipation. Increase oral fluid and fiber intake. Contact primary care provider if you have not had a bowel movement within 48 hours after discharge. 7. No anti-inflammatory medication until discussed at first post operative visit, this including Motrin, Aleve, Mobic, Diclofenac. 8. Follow up in office at 2 weeks postop with Cristino Fontanez PA-C 9. Follow up with your primary care doctor 7-10 days after discharge. 10. Contact [facility] with any questions, . Discharge Disposition: HOME WITH HOME HEALTH SERVICES
[2018-03-10] MEDS: THIAMINE 100 MG TAB PO SCH (12:14)
== END 2018-03-10 12:24 | disposition home health service (06) | DRG 470 ==
LOC: EC 19:27 → 4SSUR 21:34
PROVIDERS: ADMIT Orthopaedic Surgery; ATTEND Orthopaedic Surgery
PROC: 0SRB02Z Replacement of Left Hip Joint with Metal on Polyethylene Synthetic Substitute, Open Approach (ICD-10-PCS; principal; 2018-03-07 10:30)
DX: S72.012A Unspecified intracapsular fracture of left femur, initial encounter for closed fracture (principal); J44.9 Chronic obstructive pulmonary disease, unspecified; I10 Essential (primary) hypertension; Y90.6 Blood alcohol level of 120-199 mg/100 ml; F10.229 Alcohol dependence with intoxication, unspecified; F17.200 Nicotine dependence, unspecified, uncomplicated; W01.0XXA Fall on same level from slipping, tripping and stumbling without subsequent striking against object, initial encounter; Y92.39 Other specified sports and athletic area as the place of occurrence of the external cause; Y93.54 Activity, bowling; Z79.899 Other long term (current) drug therapy; Z82.49 Family history of ischemic heart disease and other diseases of the circulatory system; Z88.8 Allergy status to other drugs, medicaments and biological substances
CPT/HCPCS: 36415; 71045; 73501; 73502; 80053; 80320; 81003; 82550; 82553; 83735; 84100; 84484; 85025; 85610; 85730; 88305; 88311; 93005; 94640; 94760; 96361; 96374; 96375; 99285

== ENCOUNTER → 2019-12-24 | Outpatient (CLI) | payer OTHER ==
--- NOTE | 2019-12-24 10:55 | XR ---
EXAMINATION TYPE: XR hand complete RT DATE OF EXAM: 12/24/2019 COMPARISON: NONE HISTORY: 59-year-old male right hand contusion and pain after injury TECHNIQUE: 3 views FINDINGS: Mild osteopenia. Prominent dorsal sided soft tissue swelling. No subluxation or dislocation. Subtle l ucencies involving the ulnar aspect of the third metacarpal head. No other acute fractures seen. IMPRESSION: Prominent dorsal soft tissue swelling. Some subtle lucency projecting along the ulnar asp ect of the third metacarpal head could be projectional artifact. Correlate for any pinpoint tendernes s here to exclude a subtle nondisplaced fracture.
== END | disposition home or self-care (01) ==
LOC: RADXRMAIN 10:19
PROVIDERS: ATTEND Emergency Medicine
DX: M79.89 Other specified soft tissue disorders (principal); S60.221A Contusion of right hand, initial encounter

== ENCOUNTER → 2023-05-13 | Outpatient (CLI) | payer BC ==
--- NOTE | 2023-05-13 16:42 | US ---
EXAMINATION TYPE: US venous doppler duplex LE LT DATE OF EXAM: 05/13/2023 4:22 PM COMPARISON: NONE CLINICAL INDICATION: Male, 62 years old with history of I82.402 ACUTE EMBOLSIM AND THROMBOS UNSP DEEP VEIN; left leg edema SIDE PERFORMED: left TECHNIQUE: The lower extremity deep venous system is examined utilizing real time linear array sonog ginger with graded compression, doppler sonography and color-flow sonography. VESSELS IMAGED: Common Femoral Vein Deep Femoral Vein Greater Saphenous Vein * Femoral Vein Popliteal Vein Small Saphenous Vein * Proximal Calf Veins (* superficial vessels) The deep venous system from the left common femoral vein to the proximal calf veins is patent, compre ssible, with augmentable flow and normal waveforms.. IMPRESSION: No evidence of DVT left lower extremity from the common femoral vein to the proximal calf veins.
== END | disposition home or self-care (01) ==
LOC: RADUSWWP 16:04
PROVIDERS: ATTEND Family Medicine
DX: I82.402 Acute embolism and thrombosis of unspecified deep veins of left lower extremity (principal)